=== PATIENT | female | born 1985 | race Caucasian/White ===

== ENCOUNTER → 2016-11-21 | Outpatient (CLI) | payer MEDICAID | LOC: BMCIMAGING 10:03 | PROVIDERS: ATTEND Physician Assistant | DX: R20.0 Anesthesia of skin (principal) | CPT/HCPCS: 73130-PO ==

== ENCOUNTER → 2017-02-02 | Outpatient (CLI) | payer MEDICAID | LOC: BRMIMAGING 08:57 | PROVIDERS: ATTEND Physician Assistant | DX: M50.321 Other cervical disc degeneration at C4-C5 level (principal); M25.551 Pain in right hip | CPT/HCPCS: 72052-PO ==